=== PATIENT | male | born 1995 | race Two or more races ===

== ENCOUNTER 2017-02-14 07:39 | Emergency (ER) | payer MEDICAID ==
[~2017-02-14] VITALS: Ht 172.7 cm; Wt 72.6 kg
[2017-02-14] MEDS ORDERED: SODIUM CHLORIDE 0.9% 1,000 ML IV ONE (11:38)
[2017-02-14 12:04] LABS: Basophils # (auto) 0 uL; Basophils % (auto) 0.9 % (0.0-2.0); Eosinophils # (auto) 0.1 uL; Eosinophils % (auto) 1.3 % (0.0-7.0); Hematocrit 46.1 % (41.0-53.0); Hemoglobin 16.1 g/dL (13.5-17.5); Lymphocytes # (auto) 1.3 uL; Lymphocytes % (auto) 24.5 % (10.0-50.0); Mean Corpuscular Hemoglobin 32.4 pg (28.0-32.0); Mean Corpuscular Hgb Conc. 34.9 g/dL (32.0-36.0); Mean Corpuscular Volume 92.8 fL (80.0-100.0); Mean Platelet Volume 8.7 fL (6.9-10.8); Monocytes # (auto) 0.5 uL; Monocytes % (auto) 9.1 % (0.0-12.0); Neutrophils # (auto) 3.4 uL; Neutrophils % (auto) 64.2 % (37.0-80.0); Nucleated Red Blood Cells % 0.3 %; Platelet Count (auto) 270 10^3/uL (140-450); Red Cell Distribution Width 13.7 % (11.8-14.3); White Blood Cell 5.2 10^3/uL (4.4-10.8)
[2017-02-14 12:32] LABS: Albumin 4.6 g/dL (3.4-5.0); Bilirubin, Total 0.8 mg/dL (0.2-1.0); Calcium 9.3 mg/dL (8.5-10.1); Magnesium 2.4 mg/dL (1.6-2.6); Potassium 3.8 mmol/L (3.5-5.1); Total Protein 8.5 g/dL (6.4-8.2)
[2017-02-14 12:45] LABS: Urine RBC None Seen /hpf (0 - 3)
[2017-02-14 13:02] LABS: Urine Bilirubin Negative (Negative); Urine Blood Negative /uL (Negative); Urine Color Yellow (Yellow); Urine Glucose Normal (Normal); Urine Ketone Negative (Negative); Urine Nitrite Negative (Negative); Urine Urobilinogen Normal (Negative)
[2017-02-14 14:19] VITALS: BP 113/62
== END 2017-02-14 14:04 | disposition home or self-care (01) ==
LOC: ER 07:39
DX: T73.3XXA Exhaustion due to excessive exertion, initial encounter (principal); M25.512 Pain in left shoulder; F10.239 Alcohol dependence with withdrawal, unspecified; Y90.9 Presence of alcohol in blood, level not specified; Z88.0 Allergy status to penicillin; X50.0XXA Overexertion from strenuous movement or load, initial encounter; Y93.B9 Activity, other involving muscle strengthening exercises; Y99.8 Other external cause status; Y92.39 Other specified sports and athletic area as the place of occurrence of the external cause
CPT/HCPCS: 36415; 71020; 80053; 80307; 81001; 83735; 84443; 85025; 96360; 96361; 99285; J7030

== ENCOUNTER 2017-07-01 07:59 | Emergency (ER) | payer MEDICAID ==
[~2017-07-01] VITALS: Ht 172.7 cm; Wt 71.2 kg
[2017-07-01 08:50] VITALS: BP 112/68
[2017-07-01] MEDS ORDERED: cefTRIAXone SOD 1,000 MG VL IM ONE (11:00)
[2017-07-01] MEDS ORDERED: TRIAMCINOLONE 40MG/ML 1ML VIAL IM ONE (11:00)
== END 2017-07-01 15:09 | disposition home or self-care (01) ==
LOC: ER 07:59
DX: J01.80 Other acute sinusitis (principal); H10.9 Unspecified conjunctivitis; Z88.0 Allergy status to penicillin
CPT/HCPCS: 99283; J0696